=== PATIENT | male | born 1990 | race African-American/Black ===

== ENCOUNTER 2017-09-18 13:42 | Emergency (ER) | payer OTHER, SELFPAY ==
[2017-09-18] MEDS ORDERED: BUPIVACAINE 0.5% PF 10 ML VIAL ONE (14:59)
[2017-09-18] MEDS ORDERED: LIDOCAINE 1% MPF 2 ML AMPULE ONE (15:02)
--- NOTE | 2017-09-18 16:16 | ER ---
Nurse's Notes [facility] Name: Castro Quintanilla Age: 27 yrs Sex: Male : 1990 Arrival Date: 09/18/2017 Time: 13:46 Bed 19 Private MD: None, None Diagnosis: Abscess of left groin/scrotum Presentation: 09/18 13:48 Presenting complaint: Patient states: I have a "cyst" in my L groin area that i noticed hj like 2-3 days ago; its hard and warm to touch, noticed red and white stuff coming out; denies fever and chills;. Transition of care: patient was not received from another setting of care. Onset of symptoms was September 18, 2017. Risk Assessment: Do you want to hurt yourself or someone else? Patient reports no desire to harm self or others. Initial Sepsis Screen: Does the patient meet any 2 criteria? No. Patient's initial sepsis screen is negative. Does the patient have a suspected source of infection? Yes: Skin breakdown/wound. Care prior to arrival: None. 13:48 Method Of Arrival: Ambulatory 13:48 Acuity: ASHLEY 4 hj Triage Assessment: 13:50 General: Appears in no apparent distress. uncomfortable, Behavior is calm, cooperative, hj appropriate for age. Pain: Complains of pain in left femoral area. Historical: - Allergies: 13:50 No Known Allergies; hj - Home Meds: 13:50 None [Active]; hj - PMHx: 13:50 None; hj - PSHx: 13:50 surgery on left pinky; hj - Immunization history:: Adult Immunizations up to date. - Social history:: Smoking status: Patient/guardian denies using tobacco, Patient/guardian denies using alcohol. - Ebola Screening: : Patient negative for fever greater than or equal to 101.5 degrees Fahrenheit, and additional compatible Ebola Virus Disease symptoms Patient denies exposure to infectious person Patient denies travel to an Ebola-affected area in the 21 days before illness onset. Screenin:50 Abuse screen: Denies threats or abuse. Denies injuries from another. Nutritional hj screening: No deficits noted. Tuberculosis screening: No symptoms or risk factors identified. Fall Risk None identified. Assessment: 14:12 General: Appears in no apparent distress. uncomfortable, Behavior is calm, cooperative, aj1 appropriate for age. Pain: Complains of pain in left femoral area Pain does not radiate. Pain currently is 9 out of 10 on a pain scale. Quality of pain is described as pressure, sharp. Neuro: Level of Consciousness is awake, alert, obeys commands. Cardiovascular: Patient's skin is warm and dry. Respiratory: Airway is patent Respiratory effort is even, unlabored, Respiratory pattern is regular, symmetrical. GI: No signs and/or symptoms were reported involving the gastrointestinal system. : No signs and/or symptoms were reported regarding the genitourinary system. EENT: No signs and/or symptoms were reported regarding the EENT system. Derm: Abscess located on left femoral area has purulent drainage, is hot to touch, is red, is raised. Musculoskeletal: No signs and/or symptoms reported regarding the musculoskeletal system. Circulation, motion, and sensation intact. 15:18 Reassessment: Patient appears in no apparent distress at this time. No changes from aj1 previously documented assessment. Patient and/or family updated on plan of care and expected duration. Pain level reassessed. Patient is alert, oriented x 3, equal unlabored respirations, skin warm/dry/pink. 16:41 Reassessment: Patient given approximately 150mg of Clindamycin IM when he jumped ss forward, taking himself off the needle and refused to get anymore of the IM medication. Notified Dr. Zabala. New order received. Vital Signs: 13:51 BP 138 / 69; Pulse 85; Resp 18; Temp 98.9(TE); Pulse Ox 99% on R/A; Weight 85.28 kg; hj Height 5 ft. 11 in. (180.34 cm); Pain 8/10; 15:18 Pulse 89; Resp 18; Pulse Ox 97% ; aj1 16:42 BP 142 / 75; Pulse 88; Resp 16; Pulse Ox 100% on R/A; ss 13:51 Body Mass Index 26.22 (85.28 kg, 180.34 cm) ED Course: 13:46 Patient arrived in ED. mr 13:46 None, None is Private Physician. mr 13:50 Triage completed. hj 13:51 Arm band placed on right wrist. 13:51 Patient has correct armband on for positive identification. Placed in gown. Bed in low hj position. Call light in reach. Side rails up X 1. 13:52 Nani Lou, RN is Primary Nurse. aj1 13:53 Edson Zabala MD is Attending Physician. kdr 14:12 No provider procedures requiring assistance completed. aj1 16:35 Wound Culture Sent. mh5 16:35 Wound culture swab sent to lab. [facility] 16:43 Patient did not have IV access during this emergency room visit. ss Administered Medications: 16:41 Not Given (Patient Refused): Clindamycin 600 mg IM once ss 16:41 Drug: Bactrim (160 mg-800 mg (DS) 1 tablet Route: PO; ss 16:44 Follow up: Response: No adverse reaction ss 16:41 Drug: Clindamycin 300 mg Route: PO; ss 16:44 Follow up: Response: No adverse reaction ss Outcome: 16:15 Discharge ordered by . kdr 16:44 Discharged to home ambulatory. ss 16:44 Condition: good 16:44 Discharge instructions given to patient, Instructed on discharge instructions, follow up and referral plans. no driving heavy equipment, Demonstrated understanding of instructions, follow-up care, medications, Prescriptions given X 2. 16:44 Patient left the ED. Signatures: Nani Lou, RN RN aj Edson Zabala MD MD kdr Rivera, Maria mr Smirch, Shelby, RN RN Ted Del Rosario RN RN hj Martinez, Maria [facility] Corrections: (The following items were deleted from the chart) 13:52 13:51 85.28 kg; Height 5 ft. 11 in.; BMI: 26.2; Pain 8/10; hj hj 13:53 13:51 Pulse 85bpm; Resp 18bpm; Pulse Ox 99% RA; Temp 98.9F Temporal; 85.28 kg; Height 5 hj ft. 11 in.; BMI: 26.2; Pain 8/10; hj
--- NOTE | 2017-09-18 16:16 | EDPHYS ---
Physician Documentation [facility] Name: Castro Quintanilla Age: 27 yrs Sex: Male : 1990 Arrival Date: 09/18/2017 Time: 13:46 Bed 19 Private MD: None, None ED Physician Edson Zabala HPI: 09/18 17:23 This 27 yrs old Black Male presents to ER via Ambulatory with complaints of Abscess. kdr 17:23 The patient presents with an abscess of the left femoral area. Description: The kdr affected area is small, fluctuant, raised, swollen, tense, warm. Onset: The symptoms/episode began/occurred gradually, 2 day(s) ago. Possible cause(s): unknown. Associated signs and symptoms: The patient has no apparent associated signs or symptoms. Modifying factors: the symptoms are alleviated by nothing, the symptoms are aggravated by walking, pressure, squeezing the lesion and expressing the contents, touching. Severity of symptoms: At their worst the symptoms were mild, in the emergency department the symptoms are unchanged. The patient has experienced a previous episode, approximately 20 years ago. The patient has not recently seen a physician. Historical: - Allergies: 13:50 No Known Allergies; hj - Home Meds: 13:50 None [Active]; hj - PMHx: 13:50 None; hj - PSHx: 13:50 surgery on left pinky; hj - Immunization history:: Adult Immunizations up to date. - Social history:: Smoking status: Patient/guardian denies using tobacco, Patient/guardian denies using alcohol. - Ebola Screening: : Patient negative for fever greater than or equal to 101.5 degrees Fahrenheit, and additional compatible Ebola Virus Disease symptoms Patient denies exposure to infectious person Patient denies travel to an Ebola-affected area in the 21 days before illness onset. ROS: 17:23 Constitutional: Negative for fever, chills, and weight loss, Eyes: Negative for injury, kdr pain, redness, and discharge, Neck: Negative for injury, pain, and swelling, Cardiovascular: Negative for chest pain, palpitations, and edema, Respiratory: Negative for shortness of breath, cough, wheezing, and pleuritic chest pain, Abdomen/GI: Negative for abdominal pain, nausea, vomiting, diarrhea, and constipation, Back: Negative for injury and pain, : Negative for injury, bleeding, discharge, and swelling, MS/Extremity: Negative for injury and deformity, Neuro: Negative for headache, weakness, numbness, tingling, and seizure activity. Psych: Negative for depression, anxiety, suicide ideation, homicidal ideation, and hallucinations, Allergy/Immunology: Negative for hives, rash, and allergies, Endocrine: Negative for neck swelling, polydipsia, polyuria, polyphagia, and marked weight changes, Hematologic/Lymphatic: Negative for swollen nodes, abnormal bleeding, and unusual bruising. 17:23 Skin: Positive for abscess. Exam: 17:23 Constitutional: This is a well developed, well nourished patient who is awake, alert, kdr and in no acute distress. Head/Face: Normocephalic, atraumatic. Eyes: Pupils equal round and reactive to light, extra-ocular motions intact. Lids and lashes normal. Conjunctiva and sclera are non-icteric and not injected. Cornea within normal limits. Periorbital areas with no swelling, redness, or edema. Neck: Trachea midline, no thyromegaly or masses palpated, and no cervical lymphadenopathy. Supple, full range of motion without nuchal rigidity, or vertebral point tenderness. No Meningismus. Chest/axilla: Normal chest wall appearance and motion. Nontender with no deformity. No lesions are appreciated. Cardiovascular: Regular rate and rhythm with a normal S1 and S2. No gallops, murmurs, or rubs. Normal PMI, no JVD. No pulse deficits. Respiratory: Lungs have equal breath sounds bilaterally, clear to auscultation and percussion. No rales, rhonchi or wheezes noted. No increased work of breathing, no retractions or nasal flaring. Abdomen/GI: Soft, non-tender, with normal bowel sounds. No distension or tympany. No guarding or rebound. No evidence of tenderness throughout. Back: No spinal tenderness. No costovertebral tenderness. Full range of motion. MS/ Extremity: Pulses equal, no cyanosis. Neurovascular intact. Full, normal range of motion. Neuro: Awake and alert, GCS 15, oriented to person, place, time, and situation. Cranial nerves II-XII grossly intact. Motor strength 5/5 in all extremities. Sensory grossly intact. Cerebellar exam normal. Normal gait. Psych: Awake, alert, with orientation to person, place and time. Behavior, mood, and affect are within normal limits. 17:23 Skin: abscess, that is small, of the left femoral area. Vital Signs: 13:51 BP 138 / 69; Pulse 85; Resp 18; Temp 98.9(TE); Pulse Ox 99% on R/A; Weight 85.28 kg; hj Height 5 ft. 11 in. (180.34 cm); Pain 8/10; 15:18 Pulse 89; Resp 18; Pulse Ox 97% ; aj1 16:42 BP 142 / 75; Pulse 88; Resp 16; Pulse Ox 100% on R/A; ss 13:51 Body Mass Index 26.22 (85.28 kg, 180.34 cm) Procedures: 17:23 I \T\ D: Incision and drainage was performed for an abscess of the left left femoral area kdr Prepped with Betadine, Anesthetized with 2 ml's 1% Lidocaine. Incised with #11 blade. Drained moderate amount purulent fluid. bloody fluid. Abscess cavity explored. Packed with iodoform gauze, Dressing: sterile 4x4 gauze, the patient tolerated the procedure well. MDM: 16:15 Patient medically screened. kdr 17:23 Data reviewed: vital signs, nurses notes. Counseling: I had a detailed discussion with kdr the patient and/or guardian regarding: the historical points, exam findings, and any diagnostic results supporting the discharge/admit diagnosis, the need for outpatient follow up. 09/18 16:20 Order name: Wound Culture 09/18 16:13 Order name: Incision \T\ Drainage Setup; Complete Time: 16:19 kdr Administered Medications: 16:41 Not Given (Patient Refused): Clindamycin 600 mg IM once 16:41 Drug: Bactrim (160 mg-800 mg (DS) 1 tablet Route: PO; ss 16:44 Follow up: Response: No adverse reaction 16:41 Drug: Clindamycin 300 mg Route: PO; ss 16:44 Follow up: Response: No adverse reaction Disposition: 09/18/17 16:15 Discharged to Home. Impression: Abscess of left groin/scrotum. - Condition is Stable. - Discharge Instructions: Skin Abscess, [id number]. - Prescriptions for Clindamycin HCl 300 mg Oral Capsule - take 1 capsule by ORAL route every 6 hours for 10 days; 40 capsule. Bactrim DS 800- 160 mg Oral Tablet - take 1 tablet by ORAL route every 12 hours for 10 days; 20 tablet. - Medication Reconciliation Form, Thank You Letter, Antibiotic Education form. - Follow up: Private Physician; When: 2 - 3 days; Reason: If symptoms return, Further diagnostic work-up, Recheck today's complaints, Continuance of care, Re-evaluation by your physician. - Problem is new. - Symptoms have improved. Signatures: Dispatcher [employer] EDKY Edson Zabala MD MD kdr Annemarie Moreno RN RN ss Ted Del Rosario RN RN Corrections: (The following items were deleted from the chart) 16:44 16:15 09/18/2017 16:15 Discharged to Home. Impression: Abscess of left groin/scrotum. ss Condition is Stable. Forms are Medication Reconciliation Form, Thank You Letter, Antibiotic Education, Prescription Opioid Use. Follow up: Private Physician; When: 2 - 3 days; Reason: If symptoms return, Further diagnostic work-up, Recheck today's complaints, Continuance of care, Re-evaluation by your physician. Problem is new. Symptoms have improved. kdr
[2017-09-18] MEDS ORDERED: SMZ./TMP. 800/160 MG TABLET ONE (16:25)
[2017-09-18] MEDS ORDERED: CLINDAMYCIN IV 150 MG/ML (4 mL) VIAL ONE (16:30)
[2017-09-18] MEDS ORDERED: CLINDAMYCIN HCL 150 MG CAP ONE (16:41)
== END 2017-09-18 16:44 | disposition home or self-care (01) ==
LOC: ER 13:42
PROC: 0H9JXZZ Drainage of Left Upper Leg Skin, External Approach (ICD-10-PCS; principal; 2017-09-18)
DX: L02.214 Cutaneous abscess of groin (principal)
CPT/HCPCS: 87070; 87205; 99283; J2001; S0077